=== PATIENT | male | born 1960 | race Caucasian/White ===

== ENCOUNTER 2016-12-26 04:09 | Day surgery (SDC) | payer BC ==
[2016-12-23 10:11] LABS: BASOPHILS 0.2 %; BASOPHILS ABSOLUTE 0.02 10/3/uL (0.0-0.16); EOSINOPHILS 0.3 %; EOSINOPHILS ABSOLUTE 0.04 10/3/uL (0.0-0.53); HEMATOCRIT 30.6 % (40.0-51.0); HEMOGLOBIN 9.6 g/dL (13.6-17.8); IMMATURE GRANULOCYTES 0.2 %; IMMATURE GRANULOCYTES ABSOLUTE 0.02 10/3/uL (0.0-0.11); LYMPHOCYTES 13.3 %; LYMPHOCYTES ABSOLUTE 1.62 10/3/uL (0.67-4.30); MEAN CORPUS HGB CONC 31.4 g/dL (32.0-36.0); MEAN CORPUSCULAR VOLUME 73.2 fL (80-100); MEAN PLATELET VOLUME 8.8 fL (9.2-13.0); MONOCYTES 9.5 %; MONOCYTES ABSOLUTE 1.16 10/3/uL (0.21-1.20); NEUTROPHILS 76.5 %; NEUTROPHILS ABSOLUTE 9.35 10/3/uL (2.02-8.40); RBC DISTRIBUTION WIDTH 20.1 % (12.0-16.0); RED CELL COUNT 4.18 10/6/uL (4.7-6.1)
[2016-12-23 10:13] LABS: MANUAL DIFF NO %; PLATELET COUNT 456 10/3/uL (150-400); WHITE BLOOD CELLS 12.2 10/3/uL (4.5-10.5)
--- NOTE | ~2016-12-26 | OP ---
Record Of Operation [facility] [address] [place]. [address] NAME: JANES SEARS : 60 STATUS : [facility]#: [id number] AGE: 56 ADM/REG DATE : 12/26/16 MR#: [id number] REPORT SERV DATE: 12/27/16 DICTATED BY: DURGA CLARKE DATE: 12/26/16 REPORT STATUS : Draft TRANSCRIBED BY: MODL DATE: 12/26/16 DATE OF PROCEDURE: PREOPERATIVE DIAGNOSES: Herniated nucleus polyposis, C5-6; with radiculopathy, right greater than left. POSTOPERATIVE DIAGNOSES: Herniated nucleus polyposis, C5-6; with radiculopathy, right greater than left. PROCEDURE: 1. Microscopic and navigation-assisted surgery. 2. Anterior cervical diskectomy with foraminotomy, C5-6. 3. Anterior Prestige LP disk implantation. CLAY MIXER: Elmer Hylton. ANESTHESIA: General. BLOOD LOSS: 10 mL. INDICATIONS FOR SURGERY: A 56-year-old male who has neck pain, shoulder pain, arm pain, right greater than left. He has some weakness of the shoulders as well. He has developed a loss of his brachioradialis reflex. The patient has plain x-rays revealing no significant malalignment, there are no instabilities. Facet joints do not appear abnormal. The MRI shows disk herniation and foraminal stenosis. There is some mild degree of facet arthropathy, but it is very insignificant. Because of the above and failure of conservative care, the patient was brought to surgery for the above procedure. Prior to surgery, risks, benefits, alternatives, and expectations have been explained. Consent form is signed. Please note, because of the complexity of surgery, the need to identify correct level of surgery intraoperatively, as well as desire to carry out the safest and most precise dissection of those, I felt that intraoperative navigation was mandatory. DESCRIPTION OF PROCEDURE: Antibiotic prophylaxis given. Neurophysiology monitoring leads inserted. The patient brought to the operative suite. General anesthetic including endotracheal intubation administered. He was placed supine on flat Ricardo spine frame and bony prominences were carefully padded. A small bolster was placed behind his shoulders, his neck was in neutral alignment. Scalp was painted with Betadine solution and Rey three-point fixation attached to the skull. Rey attached to the Ricardo bed and the [email or web address] navigational registration guide attached to the Rey. Because of the complexity of surgery and the need to identify correct level of surgery intraoperatively as well as desire to carry out safest and most precise dissection, I felt that intraoperative navigation was mandatory. The neck was scrubbed with Hibiclens solution, DuraPrep was painted, and sterile drapes applied. Record Of Operation [facility] [address] [place]. [address] NAME: JANES SEARS : 60 STATUS : [facility]#: [id number] AGE: 56 ADM/REG DATE : 12/26/16 MR#: [id number] REPORT SERV DATE: 12/27/16 DICTATED BY: DURGA CLARKE DATE: 12/26/16 REPORT STATUS : Draft TRANSCRIBED BY: MIRIAN DATE: 12/26/[address] scan with O-arm obtained, CT information used to register the navigational system. With navigational assistance, I identified the C5-6 level. On the left side, a 2.5 cm transverse skin incision was carried out, the platysma was incised in line with the skin incision. The superficial layer of the deep cervical fascia was released along the anterior border of the sternocleidomastoid. Blunt dissection was carried out through the retropharyngeal space. The longus colli muscle was retracted laterally. I re-identified the correct level of surgery intraoperatively, a Qu[place]ado distractor pin was placed in the mid body of C5 and 6. The microscope was sterilely draped and used throughout the remainder of the procedure. Initially, we carried out an incision of the anterior longitudinal ligament, the disk was removed with curettes and rongeurs. Posteriorly, we removed the posterior inferior lip of the body at L5 to avoid impingement by the implant. The posterior longitudinal ligament was completely taken down and completely decompressed in the central canal, and we did wide foraminotomy bilaterally. Wounds were irrigated. We then used live intraoperative C-arm. We carried out evaluation of the height and depth necessary. Implant size chosen was a 6 x 18 mm implant. We then used a drill guide, and after checking for proper rotation, we drilled the four holes. We followed that by the rail cutter and followed by implantation of the final implant. This was all done under continuous C-arm imaging. After the implant was finally impacted, it was well seated. AP and lateral x-rays revealed excellent position of the implants. The wound was irrigated. No bleeding was noted. We carefully inspected the wound and once observed it for at least a couple of minutes with no bleeding of any kind. No drain was necessary. The platysma was closed with a running 3-0 Vicryl suture, subcutaneous tissue closed with 3-0 Vicryl suture, and subcuticular 4-0 PDS used for skin closure. . Sterile dressing was applied. The patient awakened, extubated, and taken to recovery room in satisfactory condition having tolerated the procedure well. Sponge, needle, and instrument counts were correct. No intraoperative complications noted. SYL/MODL Durga Clarke D.O. / [id number] CC: Durga Clarke D.O.
[~2016-12-26 04:09] MED LIST: FISH-EPA1000 MG PO; IBU800 PO; MAG OXIDE250 MG PO; NEUR600 PO; PCET PO; SEVERAL VITS
== END 2016-12-26 12:30 | disposition home or self-care (01) ==
LOC: SDC 04:09
PROVIDERS: Orthopaedic Surgery Orthopaedic Surgery of the Spine
PROC: 0RB30ZZ Excision of Cervical Vertebral Disc, Open Approach (ICD-10-PCS; principal; 2016-12-26 05:30)
DX: M50.122 Cervical disc disorder at C5-C6 level with radiculopathy (principal); Z90.49 Acquired absence of other specified parts of digestive tract
CPT/HCPCS: 82962; 85025; 87641; 88304; 88311; 93005; A9270-GY; C1713; J0690; J2250; J2270; J2405; J2710; J3010

== ENCOUNTER 2017-01-04 21:49 | Inpatient (IN) | payer OTHER ==
--- NOTE | ~2017-01-04 | HP ---
History And Physical [facility] [id number] [place]. [address] NAME: JANES SEARS : 60 STATUS : ADM IN PAT#: [id number] AGE: 56 ADM/REG DATE : 01/04/17 MR#: [id number] REPORT SERV DATE: 01/05/17 DICTATED BY: NIESHA MARTINEZ JR. 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 Not clearly anginal in nature and he was found to have a hemoglobin of 8.5 with macrocytic indices. No definite melena, but he just was started on aspirin by his PCP recently and he also takes high dose ibuprofen at home. He has a baseline hemoglobin around 10 with diagnosis of hemochromatosis. He had an uneventful cervical spine operation by Dr. Cavanaugh, 12/26/2016. On 12/09/2016, he had a treadmill test read by Dr. Felipe. He exercised to stage 5 Pankaj protocol without chest pain, but had ST-segment depression, and the test was read as high risk study. This apparently triggered some anxiety with the patient and the onset of the aspirin therapy. His EKG is entirely normal and two sets of cardiac enzymes have been normal. ALLERGIES: NO KNOWN DRUG ALLERGIES. MEDICATIONS: Home medication list is reviewed. It is noted that the emergency room started him on IV heparin. PAST MEDICAL HISTORY: Pneumonia fifteen years ago, chronic hemochromatosis diagnosis followed by Dr. Hyde, previous history of appendectomy and recent cervical spine surgery on C5-C6, hernia repair 1991, 1994 L4-L5 laminectomy. SOCIAL HISTORY: No tobacco. Two beers three times a week. Marijuana occasionally. Works at home for a [employer]. Three children . FAMILY HISTORY: Brother with atrial fibrillation. PHYSICAL EXAMINATION: GENERAL: Pale, otherwise healthy-appearing 56-year-old white male, in no acute distress. VITAL SIGNS: Blood pressure 118/71, pulse is 64 and regular, respirations 18, and afebrile. HEENT: No xanthelasma. NECK: No JVD at 30 degrees, no thyromegaly, no carotid bruit. LUNGS: Clear to auscultation and percussion. COR: No thrills, heaves, normal S1, S2. No gallop. No rub. No murmur. ABD: Soft, nontender, no hepatosplenomegaly, no mass. EXT: Without edema or pulse deficit. Nail beds are pale. MS: Back without spine or costovertebral angle tenderness. NEURO: Symmetric findings. History And Physical [address] [address] NAME: JANES SEARS : 60 STATUS : ADM IN [facility]#: [id number] AGE: 56 ADM/REG DATE : 01/04/17 MR#: [id number] REPORT SERV DATE: 01/05/17 DICTATED BY: NIESHA MARTINEZ JR. 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 He is now on a heparin drip. Last month, he had a treadmill test, which was read as high risk, but he was able to exercise without chest pain to stage 5, but just had ST depression. The patient's hemoglobin runs around 10 according to his history with a history of hemochromatosis. He has macrocytic indices now and hemoglobin has dropped to 8.5. Cardiac enzymes have been negative x2 and the patient has a completely normal EKG. SUGGESTIONS: We will schedule him for a stress nuclear scan today to see if he has a false positive treadmill test. In the setting of macrocytic anemia with hemoglobin of 8.5, he is not a good invasive candidate at this point. LOW/MIRIAN Niesha Martinez Jr., M.D. / [id number] CC: Jammie Peralta
[2017-01-04 17:56] LABS: BASOPHILS 0.2 %; BASOPHILS ABSOLUTE 0.02 10/3/uL (0.0-0.16); EOSINOPHILS 2.1 %; EOSINOPHILS ABSOLUTE 0.18 10/3/uL (0.0-0.53); ER CBC TAT 0 Hrs 03 Mins; HEMATOCRIT 28.8 % (40.0-51.0); IMMATURE GRANULOCYTES 0.2 %; IMMATURE GRANULOCYTES ABSOLUTE 0.02 10/3/uL (0.0-0.11); LYMPHOCYTES 28.6 %; MEAN CORPUS HGB CONC 31.3 g/dL (32.0-36.0); MEAN CORPUSCULAR HEMOGLOB 23.1 pg (26.0-34.0); MEAN PLATELET VOLUME 8.7 fL (9.2-13.0); MONOCYTES 10.5 %; MONOCYTES ABSOLUTE 0.92 10/3/uL (0.21-1.20); NEUTROPHILS 58.4 %; NEUTROPHILS ABSOLUTE 5.09 10/3/uL (2.02-8.40); PLATELET COUNT 449 10/3/uL (150-400); RBC DISTRIBUTION WIDTH 20.6 % (12.0-16.0); RED CELL COUNT 3.89 10/6/uL (4.7-6.1); WHITE BLOOD CELLS 8.7 10/3/uL (4.5-10.5)
[2017-01-04 17:58] LABS: MANUAL DIFF NO %
[2017-01-04 18:05] LABS: INTERNATIONAL NORMAL RATI 1.1 UNITS (-); PARTIAL THROMBO TIME 32.1 SEC (22.5-37.2); PROTIME (NOT ORD) 13.6 SEC (12.0-14.5)
[2017-01-04 18:14] LABS: BUN (BLOOD UREA NITROGEN) 18 MG/DL (6-23); CALCIUM, SERUM 8.8 MG/DL (8.5-10.4); CHEST PAIN PROFILE TAT 0 Hrs 21 Mins; CHLORIDE, SERUM 99 MMOL/L (96-112); CO2 (CARBON DIOXIDE) 29 MMOL/L (24-34); CREATININE 0.91 MG/DL (0.70-1.30); GFR AFRICAN AMERICAN 109 ML/MIN (>=60); GFR NON AFRICAN AMERICAN 94 ML/MIN (>=60); GLUCOSE, SERUM 100 MG/DL (60-99); POTASSIUM, SERUM 4.2 MMOL/L (3.5-5.3); SODIUM, SERUM 136 MMOL/L (135-148); TROPONIN I <0.02 NG/ML (<0.05)
[2017-01-04] MEDS ORDERED: NEUR300 PO (22:21)
[2017-01-04] MEDS ORDERED: IBU800 PO (22:21)
[2017-01-04] MEDS ORDERED: METHOC500B PO (22:21)
[2017-01-04] MEDS ORDERED: FOLIC ACID800 MCG PO (22:22)
[2017-01-04] MEDS ORDERED: PCET PO (22:22)
[2017-01-04] MEDS ORDERED: ASAB PO (22:22)
[2017-01-04] MEDS ORDERED: SUPER B COMP PO (22:23)
[2017-01-04] MEDS ORDERED: FISH-EPA1000 MG PO (22:23)
[2017-01-04] MEDS ORDERED: MAGNESIUM 250MG OTC PO (22:23)
[2017-01-04] MEDS ORDERED: VITAMIN D OTC PO (22:25)
[2017-01-05 01:45] LABS: ASCORBIC ACID (UR NOT ORDER) NEG (NEG); BILIRUBIN, URINE NEGATIVE (NEG); KETONE, URINE NEGATIVE (NEG); LEUKOCYTE ESTERASE(NOT OR NEG (NEG); WBC (NOT ORDERED) (RFLEX) < 1 (0-5)
[2017-01-05 07:15] LABS: BASOPHILS 0.1 %; BASOPHILS ABSOLUTE 0.01 10/3/uL (0.0-0.16); EOSINOPHILS 2.3 %; EOSINOPHILS ABSOLUTE 0.17 10/3/uL (0.0-0.53); HEMATOCRIT 27.3 % (40.0-51.0); HEMOGLOBIN 8.5 g/dL (13.6-17.8); IMMATURE GRANULOCYTES 0.1 %; IMMATURE GRANULOCYTES ABSOLUTE 0.01 10/3/uL (0.0-0.11); LYMPHOCYTES 27.9 %; MEAN CORPUS HGB CONC 31.1 g/dL (32.0-36.0); MEAN PLATELET VOLUME 8.7 fL (9.2-13.0); MONOCYTES ABSOLUTE 0.75 10/3/uL (0.21-1.20); NEUTROPHILS 59.6 %; NEUTROPHILS ABSOLUTE 4.49 10/3/uL (2.02-8.40); PLATELET COUNT 394 10/3/uL (150-400); RBC DISTRIBUTION WIDTH 20.5 % (12.0-16.0); RED CELL COUNT 3.69 10/6/uL (4.7-6.1); WHITE BLOOD CELLS 7.5 10/3/uL (4.5-10.5)
[2017-01-05 07:18] LABS: MANUAL DIFF NO %
[2017-01-05 07:22] LABS: PARTIAL THROMBO TIME 45.8 SEC (22.5-37.2)
[2017-01-05 07:33] LABS: CHOL/HDL RATIO(NOT ORDER) 2.2 (0-5)
[2017-01-06 05:13] LABS: BASOPHILS 0.3 %; BASOPHILS ABSOLUTE 0.02 10/3/uL (0.0-0.16); EOSINOPHILS 1.6 %; EOSINOPHILS ABSOLUTE 0.12 10/3/uL (0.0-0.53); HEMATOCRIT 28.9 % (40.0-51.0); IMMATURE GRANULOCYTES 0.1 %; IMMATURE GRANULOCYTES ABSOLUTE 0.01 10/3/uL (0.0-0.11); LYMPHOCYTES ABSOLUTE 1.98 10/3/uL (0.67-4.30); MEAN CORPUS HGB CONC 31.1 g/dL (32.0-36.0); MEAN CORPUSCULAR HEMOGLOB 23.1 pg (26.0-34.0); MEAN CORPUSCULAR VOLUME 74.3 fL (80-100); MEAN PLATELET VOLUME 9.6 fL (9.2-13.0); MONOCYTES 10.1 %; MONOCYTES ABSOLUTE 0.77 10/3/uL (0.21-1.20); NEUTROPHILS 61.9 %; NEUTROPHILS ABSOLUTE 4.73 10/3/uL (2.02-8.40); PLATELET COUNT 476 10/3/uL (150-400); RBC DISTRIBUTION WIDTH 20.5 % (12.0-16.0); RED CELL COUNT 3.89 10/6/uL (4.7-6.1); WHITE BLOOD CELLS 7.6 10/3/uL (4.5-10.5)
[2017-01-06 05:21] LABS: MANUAL DIFF NO %
[2017-01-06 11:39] LABS: FOLATE 17.5 NG/ML (>5.2); ULTRASENSITIVE TSH 2.22 MCIU/ML (0.358-3.740)
== END 2017-01-06 16:54 | disposition home or self-care (01) | DRG 642 ==
LOC: ER 21:49 → 5NO 22:02
PROVIDERS: Emergency Medicine; Internal Medicine Cardiovascular Disease; Internal Medicine Hematology & Oncology
DX: E83.119 Hemochromatosis, unspecified (principal); D56.9 Thalassemia, unspecified
CPT/HCPCS: 71020; 78452; 80048; 80061; 81001; 82607; 82728; 82746; 83540; 83550; 83735; 84443; 84460; 84484; 85025; 85610; 85730; 93005; 93017; 99285; A9270-GY; A9502; G0378